=== PATIENT | female | born 1945 | race Caucasian/White ===

== ENCOUNTER → 2017-05-31 08:36 | Outpatient (CLI) | payer MEDICARE, SELFPAY ==
--- NOTE | 2017-05-31 08:48 | MR_ITS ---
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 FINDINGS: No midline shift, mass effect, intracranial hemorrhage, or hydrocephalus is evident. No evidence of acute infarction or other abnormal areas of the straight diffusion. No enhancing lesions are evident. There are scattered periventricular and subcortical T2 white matter hyperintensities. Some of these are in the occipital region and at least one in the right parietal areas oriented perpendicular to the long axis of the lateral ventricles. The pituitary and optic chiasm and corpus callosum have an unremarkable appearance. No cerebellar ectopia. No evidence of mass or prepontine region in the area of the cranial nerve . No large aneurysms evident. Small aneurysms may not be detected with this technique and may be better evaluated for with MRA. There is mild mucosal thickening of the ethmoid sinus. IMPRESSION: 1. There are scattered periventricular and subcortical T2 white matter hyperintensities. These are nonspecific and may be related to ischemic gliotic foci from small vessel disease. At least one lesion is oriented perpendicular to the long axis of the lateral ventricle which can be a finding seen with multiple sclerosis. Patient is older than expected however for multiple sclerosis. Please correlate with clinical parameters. 2. Otherwise negative MRI of the brain without and with contrast
[2017-05-31 08:59] LABS: Blood Urea Nitrogen 15 mg/dL (7-18); Creatinine,Serum 0.72 mg/dL (0.55-1.02); Estimated Glomerular Filt Rate 80 ml/min (>60); GFR (African American) 96 ML/MIN (>60)
== END ==
PROVIDERS: Family Provider Family Medicine; PCP Family Medicine; Visit Provider Ophthalmology
DX: H49.20 Sixth [abducent] nerve palsy, unspecified eye (principal)
CPT/HCPCS: 36415; 70553; 82565; 84520; A9576

== ENCOUNTER → 2017-06-09 14:08 | Outpatient (CLI) | payer MEDICARE, SELFPAY ==
--- NOTE | 2017-06-09 14:28 | MR_ITS ---
MR angio head wo con CLINICAL INDICATION: ITS.REASON: 6TH NERVE PALSY ORDERING PHYSICIAN: Reza Caldera MD PATIENT AGE: 71 years COMPARISON is made to previous MRI of 05/31/2017 TECHNIQUE: 3-D [id number] images obtained without contrast with 3-D reformats. FINDINGS: There is minimal ectasia of the anterior communicating artery. A definite aneurysm however is not identified. No other abnormalities are evident. No major intracranial occlusive process apparent. Single shot MRV image shows no evidence of sagittal sinus thrombosis. The basilar artery, posterior cerebral arteries and posterior communicating arteries have an unremarkable appearance. IMPRESSION: 1. No definite intracranial aneurysm or AVM. 2. Mild ectasia of the anterior communicating artery. This should not have any affect on the cranial nerve
== END ==
PROVIDERS: Family Provider Family Medicine; PCP Family Medicine; Visit Provider Ophthalmology
DX: H49.20 Sixth [abducent] nerve palsy, unspecified eye (principal)
CPT/HCPCS: 70544

== ENCOUNTER 2023-08-08 15:00 | Emergency (ER) | payer MEDICARE, SELFPAY ==
[2023-08-08] VITALS (13 sets, daily range): BP systolic 149–198; BP diastolic 68–90; PULSE 53–73; RESP 12–16; TEMP 36.6; O2SAT 92–99; BMI 23.7
--- NOTE | 2023-08-08 15:21 | CT_ITS ---
PROCEDURE INFORMATION: Exam: CTA Chest With Contrast Exam date and time: 08/08/2023 5:42 PM Age: 77 years old Clinical indication: Other: Presyncope; Additional info: Presyncope, ble numbness/weakness TECHNIQUE: Imaging protocol: Computed tomographic angiography of the chest with contrast. Exam focused on the arteries. 3D rendering (Not supervised by radiologist): MIP and/or 3D reconstructed images were created by the technologist. Radiation optimization: All CT scans at this facility use at least one of these dose optimization techniques: automated exposure control; mA and/or kV adjustment per patient size (includes targeted exams where dose is matched to clinical indication); or iterative reconstruction. Contrast material: ISOVUE; Contrast volume: 100 ml; Contrast route: INTRAVENOUS (IV); COMPARISON: CT ANGIO ABDOMEN PELVIS 08/08/2023 5:42 PM FINDINGS: Pulmonary arteries: Normal. No pulmonary emboli. Aorta: There is moderate calcific atherosclerotic disease of the thoracic aorta without aneurysmal dilatation. Lungs: See Lymph nodes finding. Pleural spaces: Unremarkable. No pneumothorax. No pleural effusion. Heart: Unremarkable. No cardiomegaly. No pericardial effusion. Coronary arteries: Moderate three-vessel calcific atherosclerotic disease of the coronary arteries. Lymph nodes: Right middle lobe, left lower lobe and right lower lobe calcified granulomas with right hilar calcified nodes likely related to prior granulomatous process. Bones/joints: Unremarkable. No acute fracture. Soft tissues: Unremarkable. IMPRESSION: No acute findings.
--- NOTE | 2023-08-08 15:21 | CT_ITS ---
PROCEDURE INFORMATION: Exam: CT Head Without Contrast Exam date and time: 08/08/2023 5:35 PM Age: 77 years old Clinical indication: Numbness / parasthesia; Additional info: Presyncope, ble numbness/weakness TECHNIQUE: Imaging protocol: Computed tomography of the head without contrast. Radiation optimization: All CT scans at this facility use at least one of these dose optimization techniques: automated exposure control; mA and/or kV adjustment per patient size (includes targeted exams where dose is matched to clinical indication); or iterative reconstruction. COMPARISON: BRAINWW MR head/brain wo/w con 05/31/2017 8:54 AM FINDINGS: Brain: No acute intracranial hemorrhage. No evidence of large vessel infarct. No mass effect or midline shift. Mild parenchymal atrophy. Mild low attenuation changes in the periventricular white matter are nonspecific but most likely due to chronic microvascular ischemic changes. Cerebral ventricles: Prominent ventricles and sulci related to underlying atrophy. Paranasal sinuses: Visualized sinuses are unremarkable. No fluid levels. Mastoid air cells: Visualized mastoid air cells are unremarkable Orbital cavities: Visualized orbits are unremarkable. Bones: Unremarkable. No acute fracture. Soft tissues: Unremarkable. Vasculature: Intracranial atherosclerotic calcifications. Foci of gas in the cavernous sinus region also few foci along the right sided soft tissues likely venous secondary to vascular access. IMPRESSION: No CT evidence of acute intracranial abnormality. Changes compatible with chronic microvascular ischemia.
--- NOTE | 2023-08-08 15:21 | CT_ITS ---
PROCEDURE INFORMATION: Exam: CTA Head With Contrast, Arteriography Exam date and time: 08/08/2023 5:38 PM Age: 77 years old Clinical indication: Numbness; Additional info: Presyncope, ble numbness/weakness TECHNIQUE: Imaging protocol: Computed tomographic angiography of the head with contrast. Exam focused on the arteries. 3D rendering (Not supervised by radiologist): MIP and/or 3D reconstructed images were created by the technologist. Radiation optimization: All CT scans at this facility use at least one of these dose optimization techniques: automated exposure control; mA and/or kV adjustment per patient size (includes targeted exams where dose is matched to clinical indication); or iterative reconstruction. Contrast material: ISOVUE; Contrast volume: 100 ml; Contrast route: INTRAVENOUS (IV); COMPARISON: CT HEAD/BRAIN WO CON 08/08/2023 5:35 PM FINDINGS: Tubes, catheters and devices: Air densities within the cavernous sinus likely related air bubbles associated with power injection. ANTERIOR CIRCULATION: Right internal carotid artery: Moderate calcific atherosclerotic disease of the right intracranial ICA results in mild stenosis. Right middle cerebral artery: No occlusion or significant stenosis. No aneurysm. Right anterior cerebral artery: No occlusion or significant stenosis. No aneurysm. Left internal carotid artery: Mild calcific atherosclerotic disease of the left intracranial ICA results in mild stenosis. Left middle cerebral artery: No occlusion or significant stenosis. No aneurysm. Left anterior cerebral artery: No occlusion or significant stenosis. No aneurysm. POSTERIOR CIRCULATION: Right vertebral artery: No occlusion or significant stenosis. No aneurysm. Left vertebral artery: The left vertebral artery is diminutive. Basilar artery: No occlusion or significant stenosis. No aneurysm. Right posterior cerebral artery: No occlusion or significant stenosis. No aneurysm. Left posterior cerebral artery: No occlusion or significant stenosis. No aneurysm. Brain: No definite mass, mass effect, or midline shift. Cerebral ventricles: No ventriculomegaly. Bones/joints: Unremarkable. No acute fracture. Soft tissues: Unremarkable. IMPRESSION: 1. Moderate calcific atherosclerotic disease of the right intracranial ICA results in mild stenosis. 2. Mild calcific atherosclerotic disease of the left intracranial ICA results in mild stenosis. 3. Air densities within the cavernous sinus likely related air bubbles associated with power injection.
--- NOTE | 2023-08-08 15:21 | CT_ITS ---
PROCEDURE INFORMATION: Exam: CTA Neck With Contrast Exam date and time: 08/08/2023 5:38 PM Age: 77 years old Clinical indication: Numbness; Additional info: Presyncope, ble numbness/weakness TECHNIQUE: Imaging protocol: Computed tomographic angiography of the neck with contrast. Exam focused on the cervical segments of the vasculature. 3D rendering (Not supervised by radiologist): MIP and/or 3D reconstructed images were created by the technologist. Radiation optimization: All CT scans at this facility use at least one of these dose optimization techniques: automated exposure control; mA and/or kV adjustment per patient size (includes targeted exams where dose is matched to clinical indication); or iterative reconstruction. Contrast material: ISOVUE; Contrast volume: 100 ml; Contrast route: INTRAVENOUS (IV); COMPARISON: CT ANGIO HEAD 08/08/2023 5:38 PM FINDINGS: Right common carotid artery: Severe calcific atherosclerotic disease of the right carotid bulb resulting in moderate stenosis. Right internal carotid artery: No stenosis of the extracranial segment. No dissection or occlusion. Right external carotid artery: No occlusion or stenosis of the origin. Left common carotid artery: Moderate calcific atherosclerotic disease of the left carotid bulb resulting in mild stenosis. Left internal carotid artery: No stenosis of the extracranial segment. No dissection or occlusion. Left external carotid artery: No occlusion or stenosis of the origin. Right vertebral artery: No stenosis. No dissection or occlusion. Left vertebral artery: No stenosis. No dissection or occlusion. Soft tissues: Normal. No significant soft tissue swelling. Bones/joints: Moderate loss of intervertebral disc space with degenerative changes at C3 through T1 with uncovertebral joint and facet osteoarthrosis results in [id number] bilateral neural foraminal stenosis at these levels. Lungs: Dependent bilateral lung base opacities favor atelectasis. IMPRESSION: 1. Severe calcific atherosclerotic disease of the right carotid bulb resulting in moderate stenosis. 2. Moderate calcific atherosclerotic disease of the left carotid bulb resulting in mild stenosis. REFERENCES: NASCET CRITERIA. The degree of stenosis in the cervical segment of the internal carotid artery is based on NASCET criteria. Normal is no stenosis. Mild is less than 50% stenosis. Moderate is 50-69% stenosis. Severe is 70% to 99% stenosis. Total occlusion is no detectable patent lumen.
--- NOTE | 2023-08-08 15:24 | CT_ITS ---
PROCEDURE INFORMATION: Exam: CTA Abdomen and Pelvis With Contrast Exam date and time: 08/08/2023 5:42 PM Age: 77 years old Clinical indication: Numbness; Lower extremity; Bilatera; Additional info: Presyncope, bilateral foot numbness TECHNIQUE: Imaging protocol: Computed tomographic angiography of the abdomen and pelvis with contrast. Exam focused on the arteries. 3D rendering (Not supervised by radiologist): MIP and/or 3D reconstructed images were created by the technologist. Radiation optimization: All CT scans at this facility use at least one of these dose optimization techniques: automated exposure control; mA and/or kV adjustment per patient size (includes targeted exams where dose is matched to clinical indication); or iterative reconstruction. Contrast material: ISOVUE; Contrast volume: 100 ml; Contrast route: INTRAVENOUS (IV); COMPARISON: CT ANGIO CHEST PE PROTOCOL 08/08/2023 5:42 PM FINDINGS: Aorta: Moderate calcific atherosclerotic disease of the abdominal aorta without aneurysmal dilatation is present. Celiac trunk and mesenteric arteries: No occlusion or significant stenosis. Renal arteries: Moderate calcific atherosclerotic disease. No occlusion or significant stenosis. Right iliac arteries: No occlusion or significant stenosis. Left iliac arteries: No occlusion or significant stenosis. Liver: There is diffuse hypoattenuation of the liver compatible with mild hepatic steatosis. Gallbladder and biliary ducts: There are surgical clips within the gallbladder fossa. Pancreas: Unremarkable. No mass. No ductal dilation. Spleen: Multiple benign-appearing calcific densities of the spleen. Adrenal glands: Unremarkable. No mass. Kidneys and ureters: Unremarkable. No solid mass. No hydronephrosis. Stomach and bowel: Diverticula are scattered throughout the colon without inflammatory changes. Appendix: No evidence of appendicitis. Intraperitoneal space: Unremarkable. No free air. No significant fluid collection. Lymph nodes: Unremarkable. No enlarged lymph nodes. Urinary bladder: Unremarkable. No mass. Reproductive: Unremarkable as visualized. Bones/joints: Moderate loss of intervertebral disc space with degenerative changes at lumbar spine greatest from T12 through L3. Soft tissues: Unremarkable. IMPRESSION: No acute findings.
--- NOTE | 2023-08-08 15:32 | ECG_ITS ---
APPROVED REPORT Exam: Resting ECG HR:59 bpm ECG Measurements Heart Rate 59 AXES DC 128 P 32 QRSd 105 QRS 24 QT 418 T 49 QTc 416 Conclusion SINUS BRADYCARDIA BORDERLINE ECG Electronically signed by : SHAUN THURMAN, 08/08/2023 21:42:48
--- NOTE | 2023-08-08 15:39 | ED_ITS ---
Discharge Plan Disposition Patient Disposition: Home, Self-Care Condition: Good Prescriptions Prescriptions: No Action potassium chloride 20 mEq tablet extended release 20 meq PO DAILY atenolol 50 mg tablet 50 mg PO DAILY omeprazole 40 mg capsule,delayed release(DR/EC) 40 mg PO DAILY carbamazepine 200 mg tablet 200 mg PO BID simvastatin 20 mg tablet 20 mg PO DAILY Referrals Follow up/Referrals: Lloyd Darden MD [Primary Care Provider] - See instructions Jeff Morales MD [Staff Physician] - See instructions Activity Restrictions/Add. Instructions Additional Instructions/Restrictions: You were evaluated in the emergency department today. At this time, your magnesium and your potassium were low, so we replaced these for you. Your CT scan showed that you have some narrowing of the blood vessels that go to your brain from your neck. For this, typically patients are managed with cholesterol medication plus or minus aspirin. I recommend close follow-up with your primary care provider for this. Your blood pressure also is out of control at this time. I recommend follow-up with your primary care provider for reassessment for this as well. I also provided you with information for Dr. Morales with cardiology if you wish to follow-up with him. You will need to call his office. Return to the emergency department for new or worsening symptoms. Clinical Impressions Clinical Impression: Hypokalemia, Hypomagnesemia, Weakness, High blood pressure, Carotid artery stenosis Instructions Patient Instructions: DI for Hypokalemia, DI for Muscle Weakness, DI for Hypomagnesemia Discharge ED Provider: Sabine Allen General Adult HPI General Chief complaint: PAIN Stated complaint: numbness in feet/hands Time Seen by Provider: 08/08/23 15:10 Mode of Arrival: Ambulatory Source of Information: Patient Limitations: No Limitations Description of Symptoms (Recalled from ER Triage Doc. by RN): pt reports to ED with c/o tingiling and numbness in hands and feet. symptoms began this morning. pt reports symptoms intermittent. History of Present Illness HPI narrative: This patient is a 77-year-old female with a history of hypertension managed on lisinopril, hyperlipidemia, seizure disorder, GERD, and remote smoking history presenting with concern for presyncope as well as an unusual sensation in her bilateral hands and feet. Symptoms started this morning while she was walking around [facility]. She states that is not truly an numbness or tingling type feeling, she just states that it feels like her feet have been drained of blood. She states that they are intermittently hot and intermittently cold. She is never experienced anything like this in the past. No recent changes as of late, such as recent illnesses, fevers, cough, congestion, chest pain, shortness of breath, back pain, abdominal pain, vomiting, changes in bowel movements, headache, vision changes, motor weakness, discoordination or other concerns. She does note that she is been working outside in the heat a lot. Related Data Home Medications Medication Instructions Recorded Confirmed atenolol 50 mg tablet 50 mg PO DAILY 11/20/21 11/20/21 carbamazepine 200 mg tablet 200 mg PO BID 11/20/21 11/20/21 omeprazole 40 mg capsule,delayed 40 mg PO DAILY 11/20/21 11/20/21 release potassium chloride 20 mEq 20 meq PO DAILY 11/20/21 11/20/21 tablet,extended release simvastatin 20 mg tablet 20 mg PO DAILY 11/20/21 11/20/21 Allergies Allergy/AdvReac Type Severity Reaction Status Date / Time No Known Allergies Allergy Verified 08/08/23 15:21 [facility] Disclaimer: The information contained in this section may have been updated after the patient was seen, as this information can be updated by other users. Medical History Midline cystocele History of UTI Low blood potassium History of high cholesterol History of hypertension Seizure Surgical History H/O tubal ligation History of cholecystectomy Social History Smoking Status: Never smoker alcohol intake: never substance use type: denies use current occupational status: retired Travel in the last 8 weeks: None ROS Obtained: Yes All systems reviewed & no additional complaints except as documented Physical Exam General General appearance: alert and in no apparent distress Head Head exam: atraumatic and normocephalic Eye Eye exam: Present normal appearance, PERRL and EOMI ENT ENT exam: Present normal exam, normal oropharynx, mucous membranes moist and normal external ear exam Neck Neck exam: Present normal inspection, full ROM and trachea midline; Absent tenderness Chest Chest inspection: Present normal inspection and symmetric chest wall rise; Absent tenderness Respiratory Respiratory exam: Present normal lung sounds bilaterally; Absent respiratory distress, wheezes, stridor or accessory muscle use Cardiovascular Cardiovascular exam: Present regular rate and normal rhythm Abdominal Exam Abdominal exam: Present soft; Absent distention, tenderness or guarding Extremities Exam Extremities exam: Present normal inspection, full ROM, normal capillary refill and other (2 + pulses distally in all four extremities with intact motor and sensation); Absent tenderness or edema Back Exam Back exam: Present normal inspection and full ROM; Absent tenderness Neurological Exam Neurological exam: Present alert, oriented X3, CN II-XII intact, normal gait and other (NIHSS 0); Absent motor sensory deficit Psychiatric Psychiatric exam: Present normal affect, normal mood and anxious Skin Skin exam: Present warm and dry Medical Decision Making Medical Records Medical records reviewed: Yes I reviewed the patient's medical records. [place]avo Inquiry Pt receiving controlled substance: No Vital Signs: 08/08/23 15:01 08/08/23 15:16 08/08/23 15:31 Temperature 97.8 F Temperature Source Oral Pulse Rate 63 60 Pulse Rate [Left Radial] 63 Respiratory Rate 13 Blood Pressure 198/79 H 186/75 H Blood Pressure [Right Arm] 198/79 H Blood Pressure Mean Blood Pressure Mean [Right Arm] 118 02 Sat by Pulse Oximetry 97 96 95 Oxygen Delivery Method Room Air Room Air Room Air 08/08/23 16:00 08/08/23 16:30 08/08/23 17:00 Temperature Temperature Source Pulse Rate 57 L 58 L 56 L Pulse Rate [Left Radial] Respiratory Rate 14 16 Blood Pressure 164/82 H 182/81 H 188/81 H Blood Pressure [Right Arm] Blood Pressure Mean Blood Pressure Mean [Right Arm] 02 Sat by Pulse Oximetry 94 L 96 95 Oxygen Delivery Method Room Air Room Air Room Air 08/08/23 17:30 08/08/23 18:00 08/08/23 18:14 Temperature Temperature Source Pulse Rate 62 73 65 Pulse Rate [Left Radial] Respiratory Rate 12 16 14 Blood Pressure 166/79 H 187/84 H 166/90 H Blood Pressure [Right Arm] Blood Pressure Mean Blood Pressure Mean [Right Arm] 02 Sat by Pulse Oximetry 99 92 L 94 L Oxygen Delivery Method Room Air Room Air Room Air 08/08/23 18:31 08/08/23 19:01 08/08/23 19:30 Temperature Temperature Source Pulse Rate 58 L 59 L 53 L Pulse Rate [Left Radial] Respiratory Rate 14 Blood Pressure 149/74 H 182/80 H 171/68 H Blood Pressure [Right Arm] Blood Pressure Mean 125 142 Blood Pressure Mean [Right Arm] 02 Sat by Pulse Oximetry 95 94 L 94 L Oxygen Delivery Method Room Air 08/08/23 20:17 Temperature 97.8 F Temperature Source Pulse Rate 59 L Pulse Rate [Left Radial] Respiratory Rate 14 Blood Pressure 162/87 H Blood Pressure [Right Arm] Blood Pressure Mean Blood Pressure Mean [Right Arm] 02 Sat by Pulse Oximetry Oxygen Delivery Method Lab Data Lab results reviewed: Yes I reviewed the patient's lab results. Lab Results 08/08/23 15:44: WBC 4.7 L, RBC 4.51, Hgb 14.9, Hct 43.4, MCV 96.3, MCH 33.0 H, MCHC 34.3, RDW 13.8, Plt Count 178, MPV 7.8, Neut % (Auto) 42.6, Lymph % (Auto) 46.6, [place] % (Auto) 9.7 H, Eos % (Auto) 0.2, Baso % (Auto) 1.1, Neut # (Auto) 2.0, Lymph # (Auto) 2.2, [place] # (Auto) 0.5, Eos # (Auto) 0.0, Baso # (Auto) 0.1, PT 10.8, INR 1.00, Sodium 132 L, Potassium 3.2 L, Chloride 100, Carbon Dioxide 28, Anion Gap 7.2, BUN 10, Creatinine 0.70, Estimated Creat Clear 49, Estimated GFR 81, Est GFR ( Amer) 98, Glucose 110 H, Calcium 9.3, Magnesium 1.3 L, Total Bilirubin 0.9, AST 35, ALT 17, Alkaline Phosphatase 132 H, Total Creatine Kinase 51, Troponin I < 0.01, Total Protein 6.8, Albumin 3.8, Globulin 3.0, Albumin/Globulin Ratio 1.3, TSH 2.10, Thyroxine (T4) 10.1 08/08/23 18:12: Urine Color Yellow, Urine Appearance Clear, Urine pH 7.5, Ur Specific [place] 1.015, Urine Protein Negative, Urine Glucose (UA) Negative, Urine Ketones Negative, Urine Blood Trace-i, Urine Nitrate Negative, Urine Bilirubin Negative, Urine Urobilinogen 1.0, Ur Leukocyte Esterase Negative, Urine RBC 3-5, Urine WBC Occasional, Ur Squamous Epith Cells Occasional, Urine Bacteria Trace 08/08/23 18:35: Troponin I 0.01 08/08/23 15:44 08/08/23 15:44 Orders (Tests/Meds): ED MEDICATIONS Discontinued Medications Generic Name Dose Route Start Last Admin Trade Name Freq PRN Reason Stop Dose Admin Lactated Ringer's 1,000 mls @ 999 mls/hr 08/08/23 15:25 08/08/23 15:58 Lactated Ringer's 1000 Ml Bag IV 08/08/23 16:25 999 mls/hr .Q1H1M ONE Administration Potassium Chloride/Water 100 mls @ 100 mls/hr 08/08/23 16:01 08/08/23 16:22 Potassium Chloride 10meq/100ml Ivpb IV 08/08/23 17:00 100 mls/hr ONCE ONE Administration Magnesium Sulfate 2 gm in 50 mls @ 50 mls/hr 08/08/23 16:01 08/08/23 17:02 Magnesium Sulfate 2gm/50ml Premix IV 08/08/23 17:00 50 mls/hr ONCE ONE Administration Iopamidol 100 ml 08/08/23 17:43 08/08/23 17:44 Iopamidol-370 (76%);100ml Bottle IV 08/08/23 17:44 100 ml ONCE ONE Administration Iopamidol 100 ml 08/08/23 17:45 08/08/23 17:47 Iopamidol-370 (76%);100ml Bottle IV 08/08/23 17:46 100 ml ONCE ONE Administration Potassium Chloride 40 meq 08/08/23 16:01 08/08/23 16:22 Potassium Chloride 20meq Tab PO 08/08/23 16:02 40 meq ONCE ONE Administration Sodium Chloride 50 ml 08/08/23 17:43 08/08/23 17:44 0.9 % Sodium Chloride 50 Ml Vial IV 08/08/23 17:44 50 ml ONCE ONE Administration Sodium Chloride 10 ml 08/08/23 17:43 08/08/23 17:47 Sodium Chloride 0.9% 10ml Syr (Rad Only) IV 09/07/23 17:42 10 ml NEEDED PRN Administration Maintain IV Site Sodium Chloride 50 ml 08/08/23 17:45 08/08/23 17:47 0.9 % Sodium Chloride 50 Ml Vial IV 08/08/23 17:46 50 ml ONCE ONE Administration Sodium Chloride 10 ml 08/08/23 17:45 Sodium Chloride 0.9% 10ml Syr (Rad Only) IV 09/07/23 17:44 NEEDED PRN Maintain IV Site ORDERS Category Date Time Status CT angio abdomen pelvis Stat Cat Scan 08/08/23 15:[address] angio chest PE protocol Stat Cat Scan 08/08/23 15:[address] angio head Stat Cat Scan 08/08/23 15:[address] angio neck Stat Cat Scan 08/08/23 15:[address] head/brain wo con Stat Cat Scan 08/08/23 15:21 Completed CK [Creatine Kinase] Stat Lab 08/08/23 15:44 Completed Complete Blood Count Auto Diff Stat Lab 08/08/23 15:44 Completed Comprehensive Metabolic Panel Stat Lab 08/08/23 15:44 Completed Magnesium Stat Lab 08/08/23 15:44 Completed PT/INR [Prothrombin Time INR] Stat Lab 08/08/23 15:44 Completed T4 (Thyroxine) Stat Lab 08/08/23 15:44 Completed Thyroid Stimulating Hormone Stat Lab 08/08/23 15:44 Completed Troponin I Q3H Lab 08/08/23 18:35 Completed Troponin I Stat Lab 08/08/23 15:44 Completed UA [Urinalysis and Microscopic] Stat Lab 08/08/23 18:12 Completed VBG [Venous Blood Gas] Stat RT 08/08/23 15:28 Ordered ECG Data Tracing #1: I reviewed this ECG and interpreted as documented below: Sinus bradycardia with a ventricular rate of [address] changes concerning for ischemia. Normal axis and intervals. ECG initial impression date: 08/08/23 ECG initial impression time: 15:34 Medical Decision Narrative: In summary, this patient is a 77-year-old female presenting to the Emergency Department for evaluation of an episode of presyncope earlier as well as an unusual sensation in her bilateral hands and feet. Differential diagnoses considered include but are not limited to anxiety, ACS, dysrhythmia, aortic pathology, CVA, intracranial hemorrhage, electrolyte derangements, heat exhaustion. Ruling out the most morbid conditions drove assessment. It should be noted patient's history includes hypertension which is not at goal therapy. This complicates all aspects of care by increasing patient's risk for morbidity. On exam, the patient is resting comfortably in bed in no acute distress. She is profoundly hypertensive with systolics in the 190s, however vitals are otherwise reassuring with no bradycardia or hypoxia. She has normal neurologic exam with an NIH stroke scale of 0. She also has 2+ pulses in the bilateral upper and lower extremities. She is high risk for potential aortic pathology with uncontrolled hypertension and prior smoking history. workup included CBC, CMP, CK, magnesium, TSH, T4, troponin, VBG, lactate, CK, CT head, CT angiogram head, neck, chest, abdomen, and pelvis to evaluate for vascular pathology. EKG obtained is reassuring. I independently interpreted CT scan prior to the radiologist read and noted acute aortic pathology or obvious acute stroke. Please see their read for final interpretation. Labs were obtained that demonstrated hypomagnesemia and hypokalemia, for which IV and oral replacement were ordered. She tolerated this very well. On reassessment, patient had great improvement after administration of IV fluids and electrolytes. She states she is feeling better and feels normal. She did have some incidental finding of carotid stenosis on CT scan, but she is already medically managed on aspirin and statin. She also has poorly controlled hypertension here in the ED with systolics ranging in the 150s to 190s, but given her age I feel that tight control is not indicated at this time. Advised that she follow-up closely with primary care for this as well as the carotid stenosis. Given improvement in symptoms and reassuring workup and exam, I feel that the patient is appropriate for discharge home with instructions for very close follow-up and strict return precautions. She was discharged after all questions were answered. Critical Care Critical Care Time Critical Care Time: No
[2023-08-08 15:55] LABS: Basophils # 0.1 K/mm3 (0-0.2); Basophils % 1.1 % (0.1-2.0); Eosinophils % 0.2 % (0.1-12.0); Hematocrit 43.4 % (37.0-47.0); Hemoglobin 14.9 g/dL (12.2-16.2); Lymphocytes # 2.2 K/mm3 (0.7-4.5); Lymphocytes % 46.6 % (10-50); Mean Corpuscular HGB Conc 34.3 g/dL (31.8-35.4); Mean Corpuscular Volume 96.3 fl (81-99); Mean Platelet Volume 7.8 fl (7.4-10.4); Monocytes # 0.5 K/mm3 (0.1-1.0); Monocytes % 9.7 % (1.7-9.3); Neutrophils % 42.6 % (37.0-80.0); Platelet Count 178 K/mm3 (142-424); Red Blood Count 4.51 M/mm3 (4.20-5.40); Red Cell Distribution Width 13.8 % (11.5-17.5); White Blood Count 4.7 K/mm3 (4.8-10.8)
[2023-08-08 15:56] LABS: Chloride 100 mmol/L (98-107); Potassium 3.2 mmoL/L (3.5-5.1); Sodium 132 mmol/L (136-145)
[2023-08-08] MEDS: LACTATED RINGERS 1000ML 1,000 ML 999 ML IV (15:58)
[2023-08-08 15:59] LABS: Alanine Aminotransferase 17 U/L (12-78); Albumin Level 3.8 g/dl (3.5-5.0); Albumin/Globulin Ratio 1.3 (1.1-1.8); Alkaline Phosphatase 132 U/L (38-126); Anion Gap 7.2 mEq/L (5-15); Aspartate Amino Transferase 35 U/L (14-36); Bilirubin,Total 0.9 mg/dl (0.2-1.3); Blood Urea Nitrogen 10 mg/dl (7-17); Calcium 9.3 mg/dl (8.4-10.2); Carbon Dioxide 28 mmol/L (22.0-30.0); Creatine Kinase 51 U/L (30-135); Creatinine Clearance Estimated 49 mL/min (50-200); Estimated Glomerular Filt Rate 81 ml/min (>60); GFR (African American) 98 ML/MIN (>60); Glucose 110 mg/dl (74-100); Magnesium 1.3 mg/dl (1.6-2.3); Total Protein,Serum 6.8 g/dl (6.3-8.2)
[2023-08-08 16:01] LABS: Prothrombin Time 10.8 seconds (10.1-12.5)
[2023-08-08 16:17] LABS: T4 (Thyroxine) 10.1 ug/dl (5.53-11.0); Troponin I < 0.01 ng/ml (0.00-0.034)
[2023-08-08] MEDS: POTASSIUM CHLORIDE 20MEQ TAB 40 MEQ PO (16:22)
[2023-08-08] MEDS: KCl 10mEq/100ml 100 ML 100 MEQ IV (16:22)
[2023-08-08] MEDS: MAGNESIUM SULFATE IN WATER 2 GM/50 ML PIGGYBACK IV (17:02)
[2023-08-08] MEDS: 0.9 % SODIUM CHLORIDE 50 ML VIAL IV ×2 (17:44→17:47)
[2023-08-08] MEDS: SODIUM CHLORIDE 0.9% 10ML SYR (RAD ONLY) 10 ML IV ×2 (17:44→17:47)
[2023-08-08] MEDS: IOPAMIDOL-370 (76%);100ML BOTTLE 100 ML IV ×2 (17:44→17:47)
[2023-08-08 18:15] LABS: Microscopic, Urine URINE MICROSCOPIC (MICROSCOPIC)
[2023-08-08 18:20] LABS: Appearance,Urine CLEAR (Clear); Bilirubin,Urine Negative (Negative); Blood, Urine TRACE-I (Negative); Color,Urine YELLOW (Yellow); Glucose,Urine (UA) Negative (Negative); Ketones,Urine Negative (Negative); Leukocyte Esterase,Urine Negative (Negative); Nitrate,Urine Negative (Negative); PH,Urine 7.5 (5.0-8.5); Protein,Urine Negative (Negative); Specific Gravity, Urine 1.015 (1.005-1.030)
[2023-08-08 18:37] LABS: Bacteria,Urine Trace /lpf; Squamous Epithelial Cell,Urine Occasional #/hpf (0-5); WBC,Urine Occasional #/hpf (0-3)
[2023-08-08 19:17] LABS: Troponin I 0.01 ng/ml (0.00-0.034)
== END 2023-08-08 20:19 | disposition home or self-care (01) ==
PROVIDERS: Emergency Provider Emergency Medicine; PCP Family Medicine
DX: E87.6 Hypokalemia (principal); E87.1 Hypo-osmolality and hyponatremia; E83.42 Hypomagnesemia; R00.1 Bradycardia, unspecified; R53.1 Weakness; I10 Essential (primary) hypertension; I65.29 Occlusion and stenosis of unspecified carotid artery; Z87.891 Personal history of nicotine dependence; R20.2 Paresthesia of skin
CPT/HCPCS: 36415; 70450; 70496; 70498; 71275; 74174; 80053; 81001; 82550; 83735; 84436; 84443; 84484; 85025; 85610; 93005; 96365; 99285; J3475; J3480; J7120; Q9967